=== PATIENT | male | born 1990 | race Caucasian/White ===

== ENCOUNTER 2019-10-17 06:36 | Emergency (ER) | payer OTHER ==
[~2019-10-17] VITALS: Ht 170.2 cm; Wt 64.9 kg
[2019-10-17] MEDS ORDERED: ERYT1OIN RIGHTEYE (07:08)
== END 2019-10-17 07:24 | disposition home or self-care (01) ==
LOC: ER 06:36
DX: H10.9 Unspecified conjunctivitis (principal); F17.210 Nicotine dependence, cigarettes, uncomplicated
CPT/HCPCS: 99282

== ENCOUNTER 2022-01-08 20:17 | Emergency (ER) | payer OTHER ==
[~2022-01-08] VITALS: Ht 170.2 cm; Wt 65.8 kg
[~2022-01-08 20:17] MED LIST: ERYT1OIN RIGHTEYE
== END 2022-01-08 21:38 | disposition home or self-care (01) ==
LOC: ER 20:17
DX: U07.1 COVID-19 (principal); F17.210 Nicotine dependence, cigarettes, uncomplicated
CPT/HCPCS: 71046